=== PATIENT | male | born 1945 | race Caucasian/White ===

== ENCOUNTER → 2018-06-17 | Outpatient (CLI) | payer OTHER | LOC: BHLMT 09:15 | PROVIDERS: ATTEND Internal Medicine Interventional Cardiology | DX: R06.09 Other forms of dyspnea (principal); I25.10 Atherosclerotic heart disease of native coronary artery without angina pectoris; I05.9 Rheumatic mitral valve disease, unspecified | CPT/HCPCS: 93306-PO ==

== ENCOUNTER → 2018-06-30 | Outpatient (CLI) | payer OTHER | LOC: BHFA 13:30 | PROVIDERS: ATTEND Internal Medicine Cardiovascular Disease | DX: I34.0 Nonrheumatic mitral (valve) insufficiency (principal); I10 Essential (primary) hypertension; I77.9 Disorder of arteries and arterioles, unspecified; D69.6 Thrombocytopenia, unspecified ==

== ENCOUNTER → 2018-11-26 | Outpatient (CLI) | payer OTHER | LOC: EMCIMAGING 10:58 | PROVIDERS: ATTEND Nurse Practitioner | DX: R26.89 Other abnormalities of gait and mobility (principal); H53.9 Unspecified visual disturbance; I65.29 Occlusion and stenosis of unspecified carotid artery; Z86.79 Personal history of other diseases of the circulatory system | CPT/HCPCS: 70553-PN ==